=== PATIENT | female | born 1970 | race Caucasian/White ===

== ENCOUNTER 2017-07-29 20:43 | Emergency (ER) | payer BC, OTHER ==
[~2017-07-29] VITALS: Ht 165.1 cm; Wt 99.8 kg
[2017-07-30] MEDS ORDERED: BACTRIM,SEPT1 TABLET PO (00:09)
[2017-07-30] MEDS ORDERED: PERCOCET 5/31 TABLET PO (00:29)
[2017-07-30 00:38] VITALS: BP 127/92
== END 2017-07-30 00:39 | disposition home or self-care (01) ==
LOC: EME 20:43
PROC: 0H91XZZ Drainage of Face Skin, External Approach (ICD-10-PCS; principal; 2017-07-30)
DX: L02.01 Cutaneous abscess of face (principal); Z86.14 Personal history of Methicillin resistant Staphylococcus aureus infection; Z88.5 Allergy status to narcotic agent
CPT/HCPCS: 99281; 99284; J1885; J3010; J3370